=== PATIENT | male | born 1990 | race Native Hawaiian/Other Pacific Islander ===

== ENCOUNTER 2020-07-11 17:33 | Emergency (ER) | payer BC, OTHER ==
[~2020-07-11] VITALS: Ht 167.6 cm; Wt 83.9 kg
[2020-07-11 17:36] VITALS: BP 148/104
[2020-07-11] MEDS ORDERED: AMOXICILLIN500 M1 PO (18:30)
== END 2020-07-11 18:32 | disposition home or self-care (01) ==
LOC: ER 17:33
DX: J06.9 Acute upper respiratory infection, unspecified (principal); Z20.822 Contact with and (suspected) exposure to COVID-19